=== PATIENT | female | born 1955 | race Caucasian/White ===

== ENCOUNTER 2018-12-27 07:34 | Inpatient (IN) ==
[2018-12-23 11:44] LABS: Basophils # 0.1 10*3/uL (0.0-0.2); Basophils % 0.8 % (0.0-0.8); Eosinophils # 0.1 10*3/uL (0.0-0.87); Eosinophils % 2.1 % (0.00-10.9); Hematocrit 43.5 VOL% (35.7-47.0); Hemoglobin 14.2 GM/DL (12.0-16.0); Immature Granulocytes % 0.2 %; Immature Granulocytes Absolute 0.01 #; Lymphocytes # 1.3 10*3/uL (1.4-4.0); Lymphocytes % 21.7 % (21.3-54.2); Mean Corpuscular HGB Conc 32.6 GM/DL (32-36); Mean Corpuscular Volume 93.3 FL (87-102); Mean Platelet Volume 11.2 FL (9.6-12.0); Monocytes % 7.6 % (1.7-12.7); Neutrophils % 67.6 % (38.7-73.9); Platelet Count 200 T/CUMM (130-400); Red Blood Count 4.66 MC/CUMM (3.8-5.5); Red Cell Distribution Width 13.8 % (9.3-17.3); White Blood Count 6.1 T/CUMM (4-12)
[2018-12-23 12:17] LABS: Albumin 3.9 G/DL (3.4-5.0); Bilirubin,Total 0.6 MG/DL (0.2-1.0); Calcium 9.7 MG/DL (8.5-10.1); Osmolality,Calculated 280.4 MOS/KG (273-304)
[~2018-12-27 07:34] MED LIST: DIAZEPAM 5 MG TABLET PO ONE; FAMOTIDINE 20 MG TABLET PO ONE; LACTATED RINGERS 1,000 ML IV SCH; ceFAZolin 1,000 MG in SYRINGE 1 EACH IV ONE
[2018-12-27] MEDS ORDERED: ceFAZolin 1,000 MG VIAL ONE (07:54)
[2018-12-27] MEDS ORDERED: DIAZEPAM 5 MG TABLET ONE (07:55)
[2018-12-27] MEDS ORDERED: FAMOTIDINE 20 MG TABLET ONE (07:55)
[2018-12-27] MEDS ORDERED: GLUCAGON 1 MG VIAL IM PRN ×2 (10:25→12:58)
[2018-12-27] MEDS ORDERED: DEXTROSE 50% 25 GM/50 ML VIAL IV PRN ×2 (10:25→12:58)
[2018-12-27] MEDS ORDERED: ONDANSETRON 4 MG/2 ML VIAL IV PRN (10:25)
[2018-12-27] MEDS ORDERED: NALOXONE 0.4 MG/ML VIAL IV PRN (10:25)
[2018-12-27] MEDS ORDERED: HYDROmorphone 2 MG/1 ML VIAL IV PRN ×2 (10:25)
[2018-12-27] MEDS ORDERED: PROMETHAZINE 25 MG/1 ML VIAL IM PRN (10:25)
[2018-12-27] MEDS ORDERED: oxyCODONE/ACETAMINOPHEN 5-325 MG TABLET PO PRN ×2 (10:25)
[2018-12-27] MEDS ORDERED: IBUPROFEN 800 MG TABLET PO PRN (10:28)
[2018-12-27] MEDS ORDERED: FAMOTIDINE 20 MG TABLET PO PRN (10:36)
[2018-12-27] MEDS ORDERED: METOPROLOL TARTRATE 5 MG/5 ML VIAL IV ONE (10:42)
[2018-12-27] MEDS: METOPROLOL TARTRATE 5 MG/5 ML VIAL IV SCH ×3 (10:45→12:13)
[2018-12-27] MEDS ORDERED: DESFLURANE 1 UNIT/15 MINUTE INH ONE (10:48)
[2018-12-27] MEDS ORDERED: HEPARIN 10,000 UNIT/10 ML VIAL ONE (10:48)
[2018-12-27] MEDS ORDERED: HEPARIN/NACL 0.9% 2 UNITS/ML 500 ML IV ONE (10:48)
[2018-12-27] MEDS ORDERED: ETOMIDATE 40 MG/20 ML VIAL IV ONE (10:49)
[2018-12-27] MEDS ORDERED: ONDANSETRON 4 MG/2 ML VIAL ONE (10:49)
[2018-12-27] MEDS ORDERED: METOCLOPRAMIDE 10 MG/2 ML VIAL ONE (10:49)
[2018-12-27] MEDS ORDERED: ESMOLOL 100 MG/10 ML VIAL IV ONE (10:49)
[2018-12-27] MEDS ORDERED: GLYCOPYRROLATE 0.4 MG/2 ML VIAL ONE (10:49)
[2018-12-27] MEDS ORDERED: NITROGLYCERIN DRIP 50 MG/250 ML BOTTLE IV ONE (10:49)
[2018-12-27] MEDS ORDERED: PROTAMINE SULFATE 50 MG/5 ML VIAL IV ONE (10:49)
[2018-12-27] MEDS ORDERED: NEOSTIGMINE 10 MG/10 ML VIAL ONE (10:50)
[2018-12-27] MEDS ORDERED: LACTATED RINGERS 2,000 ML IV ONE (10:50)
[2018-12-27] MEDS ORDERED: FAMOTIDINE 20 MG/2 ML VIAL IV ONE (10:50)
[2018-12-27] MEDS ORDERED: ROCURONIUM 100 MG/10 ML VIAL IV ONE (10:50)
[2018-12-27] MEDS ORDERED: METOPROLOL TARTRATE 5 MG/5 ML VIAL IV SCH (11:30)
[2018-12-27] MEDS: PHENYLEPHRINE DRIP 40 MG/250 ML PREMIX IV SCH (12:12)
[2018-12-27] MEDS: LACTATED RINGERS 1,000 ML IV SCH ×2 (12:20→22:40)
[2018-12-27] MEDS ORDERED: fentaNYL 100 MCG/2 ML VIAL ONE (12:43)
[2018-12-27] MEDS: NITROPRUSSIDE 100 MG in DEXTROSE 5% 250 ML IV SCH (13:40)
[2018-12-27] MEDS: INSULIN LISPRO 100 UNIT/ML SUBCUT SCH ×2 (18:24→19:30)
[2018-12-27] MEDS: GABAPENTIN 300 MG CAPSULE PO SCH (21:23)
[2018-12-28 06:53] VITALS: BP 157/46
[2018-12-28] MEDS: INSULIN LISPRO 100 UNIT/ML SUBCUT SCH ×2 (08:31→11:58)
[2018-12-28] MEDS: LACTATED RINGERS 1,000 ML IV SCH (08:31)
[2018-12-28] MEDS: GABAPENTIN 300 MG CAPSULE PO SCH (08:49)
[2018-12-28] MEDS ORDERED: EMPAGLIFLOZIN LINAGLIPTIN PO SCH (09:00)
[2018-12-28] MEDS ORDERED: CLOPIDOGREL 75 MG TABLET PO SCH (09:00)
[2018-12-28] MEDS ORDERED: LOSARTAN 50 MG TABLET PO SCH (09:00)
[2018-12-28] MEDS ORDERED: ASPIRIN EC 81 MG TABLET PO SCH (09:00)
[2018-12-28] MEDS: PHENYLEPHRINE DRIP 40 MG/250 ML PREMIX IV SCH (13:07)
[2018-12-28] MEDS: NITROPRUSSIDE 100 MG in DEXTROSE 5% 250 ML IV SCH (13:08)
[2018-12-28 14:25] LABS: Basophils % 0.6 % (0.0-0.8); Eosinophils # 0.1 10*3/uL (0.0-0.87); Eosinophils % 1.5 % (0.00-10.9); Hematocrit 36.9 VOL% (35.7-47.0); Hemoglobin 11.7 GM/DL (12.0-16.0); Immature Granulocytes % 0.1 %; Immature Granulocytes Absolute 0.01 #; Lymphocytes # 1.5 10*3/uL (1.4-4.0); Lymphocytes % 22.1 % (21.3-54.2); Mean Corpuscular HGB Conc 31.7 GM/DL (32-36); Mean Corpuscular Volume 95.1 FL (87-102); Monocytes % 10.7 % (1.7-12.7); Platelet Count 167 T/CUMM (130-400); Red Blood Count 3.88 MC/CUMM (3.8-5.5); White Blood Count 6.8 T/CUMM (4-12)
[2018-12-28 14:46] LABS: Calcium 8.2 MG/DL (8.5-10.1); Osmolality,Calculated 283.1 MOS/KG (273-304)
== END 2018-12-28 17:03 | disposition home or self-care (01) | DRG 38 ==
LOC: N.SDSINP 07:34 → N.CC 10:14 → N.3E 12-28 13:47
PROVIDERS: ADMIT Surgery; ATTEND Surgery